=== PATIENT | female | born 1990 | race Caucasian/White ===

== ENCOUNTER 2021-01-05 17:48 | Emergency (ER) | payer SELFPAY ==
[~2021-01-05] VITALS: Ht 152.4 cm; Wt 56.7 kg
--- NOTE | 2021-01-05 17:49 | NUR ---
called for triage not in the waiting room
[2021-01-05 17:58] VITALS: BP 127/84
[2021-01-05] MEDS ORDERED: LORA-259 PO (18:05)
--- NOTE | 2021-01-05 18:14 | NUR ---
Patient discharged to home in stable condition. Written and verbal after care instructions given. Patient verbalizes understanding of instruction.
== END 2021-01-05 18:14 | disposition home or self-care (01) ==
LOC: ER 17:53
DX: F41.0 Panic disorder [episodic paroxysmal anxiety] (principal); Z79.899 Other long term (current) drug therapy